=== PATIENT | male | born 1950 | race Hispanic/Latino ===

== ENCOUNTER 2016-12-16 10:13 | Emergency (ER) | payer OTHER, BC ==
[2016-12-16 10:30] VITALS: BP 107/66
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
== END 2016-12-16 13:08 | disposition home or self-care (01) ==
LOC: ED 10:13
DX: M25.512 Pain in left shoulder (principal); I10 Essential (primary) hypertension; K21.9 Gastro-esophageal reflux disease without esophagitis; Z88.8 Allergy status to other drugs, medicaments and biological substances; V49.49XA Driver injured in collision with other motor vehicles in traffic accident, initial encounter; Y93.89 Activity, other specified; Y92.89 Other specified places as the place of occurrence of the external cause; Y99.8 Other external cause status
CPT/HCPCS: 99282

== ENCOUNTER 2017-04-07 15:37 | Outpatient (CLI) | payer BC | END 2017-04-07 15:38 | disposition home or self-care (01) | LOC: CT 15:37 | PROVIDERS: ATTEND Surgery Vascular Surgery | DX: I71.4 Abdominal aortic aneurysm, without rupture (principal) | CPT/HCPCS: 36415; 82565; 84520 ==

== ENCOUNTER 2017-04-15 09:39 | Day surgery (SDC) | payer BC ==
[2017-04-15] MEDS ORDERED: NACL 0.9% 1000 ML 1,000 ML IV SCH (10:00)
[2017-04-15 10:28] VITALS: BP 138/83
--- NOTE | 2017-04-16 07:43 | Cat Scan Report ---
CT abdomen and pelvis with contrast: Abdominal aortic aneurysm endograft followup. During IV contrast administration transverse sections were obtained from the low chest to the ischium with coronal and sagittal 2-D and MIP images. Comparison is made to comparable exam in November 2014. Bilateral low attenuation renal masses are present consistent with simple cysts unchanged from prior exam. The unenhanced bowel demonstrates scattered colonic diverticula with no inflammatory changes. The bowel and mesentery is not otherwise remarkable. There is diffuse lumbar and lower thoracic spondylosis with severe narrowing of the L5-S1 interspace. The abdominal aortic aneurysm begins at the level of the left renal artery and extends to the bifurcation. Its maximum size is 7.95 x 7.82 centimeters. There is an aortobiiliac endograft attaching at the level of the left renal artery superiorly and both iliac arteries inferiorly. The endograft is patent. No evidence of leakage. The iliofemoral arteries are widely patent. These findings are unchanged prior exam. Impressions: Stable endograft and abdominal aortic aneurysm.
== END 2017-04-15 18:15 | disposition home or self-care (01) ==
LOC: CATHLABREC 09:39 → EDSTATUS 10:00 → CATHLABREC 18:15
PROVIDERS: ATTEND Surgery Vascular Surgery
DX: I71.4 Abdominal aortic aneurysm, without rupture (principal)
CPT/HCPCS: 36415; 74174; 82565; 84520; 96360; 96361; J7030; Q9967

== ENCOUNTER 2020-05-16 08:21 | Outpatient (CLI) | payer BC, MEDICARE | END 2020-05-16 08:22 | disposition home or self-care (01) | LOC: CT 08:21 | PROVIDERS: ATTEND Surgery Vascular Surgery | DX: I70.213 Atherosclerosis of native arteries of extremities with intermittent claudication, bilateral legs (principal) | CPT/HCPCS: 36415; 82565; 84520 ==

== ENCOUNTER 2020-05-21 07:06 | Day surgery (SDC) | payer MEDICARE ==
[2020-05-21] MEDS ORDERED: SODIUM CHLORIDE 0.9% 1000 ML 1,000 ML IV SCH (08:00)
[2020-05-21 08:16] LABS: Basophils % (Auto) 0.7 % (0.0-1.8); Eosinophils # (Auto) 0.2 K/mm3 (0.0-0.4); Eosinophils % (Auto) 2.4 % (0.0-4.3); Hemoglobin 14.2 gm/dl (11.8-15.2); Lymphocytes # (Auto) 1.9 K/mm3 (1.2-5.4); Lymphocytes % (Auto) 27.7 % (13.4-35.0); Mean Corpuscular HGB Conc 34 % (32-34); Mean Corpuscular Volume 93 fl (84-94); Monocytes # (Auto) 0.8 K/mm3 (0.0-0.8); Monocytes % (Auto) 11.4 % (0.0-7.3); Platelet Count 206 K/mm3 (140-440); Red Blood Count 4.51 M/mm3 (3.65-5.03); Red Cell Distribution Width 14.7 % (13.2-15.2)
[2020-05-21 08:26] LABS: INR 0.98 (0.87-1.13)
[2020-05-21 08:27] LABS: Partial Thromboplastin Time 36.7 Sec. (24.2-36.6)
[2020-05-21 08:28] LABS: Calcium 9.7 mg/dL (8.4-10.2)
[2020-05-21] MEDS ORDERED: HEPARIN/NS 5000 UNIT/500ML 500 ML IR ONE (08:40)
[2020-05-21] MEDS ORDERED: VERAPAMIL 5 MG/2 ML INJ ONE (08:41)
[2020-05-21] MEDS ORDERED: MIDAZOLAM 2 MG/2 ML INJ ONE (08:41)
[2020-05-21] MEDS ORDERED: fentaNYL 100 MCG/2 ML INJ ONE (08:41)
[2020-05-21] MEDS ORDERED: HEPARIN 10,000 UNITS/10 ML VIAL ONE (08:41)
[2020-05-21] MEDS ORDERED: NITROGLYCERIN SYRINGE 0 ML ONE (08:42)
[2020-05-21] MEDS ORDERED: LIDOCAINE (2%) 20 MG/1 ML VIAL 20 ML MDV INFILTRATI ONE ×2 (08:42→10:16)
--- NOTE | 2020-05-21 09:49 | Short Stay Summary ---
Short Stay Documentation Date of service: 05/21/20 Narrative H&P: 69-year-old male with AAA status post EVAR with enlarging aneurysmal sac and CKD. Plan for catheter directed CT angiogram to minimize amount of contrast in the setting of CKD. Hydration has been done beforehand. Risks of aneurysm increase in size versus risks of CKD noted and discussed with patient. With rehydration and limiting contrast amount, hopefully CKD will not worsen. - History Principal diagnosis: AAA H&P: obtained from office - Allergies and Medications Current Medications: Allergies rosuvastatin calcium [From Crestor] Allergy (Verified 07/11/14 13:56) Swelling Home Medications Medication Instructions Recorded Confirmed Last Taken Type Amlodipine Besylate 10 mg PO DAILY 07/11/14 04/15/17 04/14/17 History 10 mg Benazepril HCl 40 mg PO DAILY 07/11/14 04/15/17 04/14/17 History 40 mg Clonidine HCl 0.1 mg PO DAILY 07/11/14 04/15/17 04/14/17 History Metoprolol Xl [Metoprolol 100 mg PO QDAY 07/11/14 04/15/17 04/14/17 History SUCCINATE ER TAB] 100 mg Simvastatin 20 mg PO DAILY 07/11/14 04/15/17 04/14/17 History 20 mg Clopidogrel [Plavix] 75 mg PO QDAY #30 tablet 07/17/14 04/15/17 04/14/17 Rx 75 mg Active Medications Sodium Chloride (Nacl 0.9% 1000 Ml) 1,000 mls @ 240 mls/hr IV DIRECT DAPHNE Last Admin: 05/21/20 08:10 Dose: 240 mls/hr Documented by: - Physical exam General appearance: no acute distress Lungs: Normal air movement Gastrointestinal: normal Extremities: normal temperature, normal color - Brief post op/procedure progress note Date of procedure: 05/21/20 Pre-op diagnosis: Expanding AAA s/p EVAR Post-op diagnosis: same Procedure: 1. Ultrasound guided access of the left radial artery 2. Selection of the abdominal aorta with pigtail catheter Anesthesia: local Surgeon: ANNAMARIE CARPENTER Estimated blood loss: minimal Condition: stable - Hospital course Hospital course: Tolerated procedure well. Had pre-procedure and post procedure IV hydration. Total of 50 mL of nonionic contrast used for CT scan. - Disposition Condition at discharge: Good Disposition: DC-01 TO HOME OR SELFCARE - Discharge Diagnoses (1) AAA (abdominal aortic aneurysm) without rupture Status: Acute (2) Abdominal aortic aneurysm Status: Acute (3) S/P AAA (abdominal aortic aneurysm) repair Status: Acute (4) Hyperlipemia Status: Chronic (5) Hypertension Status: Chronic (6) Renal insufficiency Status: Chronic Short Stay Discharge Plan Activity: advance as tolerated Weight Bearing Status: Weight Bear as Tolerated (do not lift more than 10 lbs with left hand for 1 week) Diet: renal Wound: keep clean and dry Follow up with: ANNAMARIE CARPENTER MD [Staff Physician] - 7 Days HEIDI MANUEL MD [Primary Care Provider] - 7 Days Forms: Post Arteriogram Instruct
[2020-05-21] MEDS ORDERED: HEPARIN/NS 5000 UNIT/500ML 1,000 ML IR ONE (10:16)
[2020-05-21] MEDS: VERAPAMIL 5 MG/2 ML INJ ONE ×2 (11:02→11:12)
[2020-05-21] MEDS: fentaNYL 100 MCG/2 ML INJ ONE ×2 (11:02→11:08)
[2020-05-21] MEDS: MIDAZOLAM 2 MG/2 ML INJ ONE ×2 (11:02→11:08)
[2020-05-21] MEDS: HEPARIN 10,000 UNITS/10 ML VIAL ONE ×2 (11:03→11:12)
[2020-05-21] MEDS: NITROGLYCERIN SYRINGE 3 ML ONE ×2 (11:04→11:12)
--- NOTE | 2020-05-21 13:12 | Operative Report ---
Operative Report Operative Report: EXAM: 1. Ultrasound-guided access of the left radial artery. 2. Selection of the thoracic aorta, and suprarenal abdominal aorta. DATE: 05/21/2020 [employer] PROCESSING: ANNAMARIE CARPENTER MD INDICATION: EVAR with increase in aneurysmal sac size. Aneurysm is greater than 8 cm in size. Patient has underlying chronic kidney disease preventing full dose CT angiography. Plan will be to perform catheter directed CT angiography of the abdomen pelvis with post EVAR protocol to limit contrast dose. MEDICATIONS: Please see nursing report for full details. DEVICES: Pigtail catheter CONTRAST: 50 mL's of nonionic contrast injected during CT angiogram PROCEDURE: The risks, benefits, and alternatives were discussed with the patient; written informed consent was obtained. The patient was hydrated prior to procedure. The left wrist was prepped and draped in a sterile fashion. Ultrasound was used to evaluate the left radial artery which was patent. Under direct ultrasound guidance, the left radial artery was accessed with a 21-gauge micropuncture needle. 0.018 inch wire was passed into the radial artery. Needle was exchanged for a 4/5 glide sheath slender transitional sheath. Radial cocktail was administered. 0.035 inch J-wire was then passed into the thoracic aorta and a pigtail catheter was advanced over the wire and used to select the thoracic aorta. Wire and catheter were then used to select the suprarenal abdominal aorta. The sheath was sutured in place and the pigtail catheter was attached with a three-way stopcock and sterilely secured. Patient was then transferred to the CT scanner and dedicated CT angiogram using post EVAR protocol was performed. Afterwards, the pigtail catheter was removed over a 0.035 inch wire. The sheath was then removed and TR band was applied achieving hemostasis. FINDINGS: Please see procedure note above IMPRESSION: Successful selection of the abdominal aorta as described above.
[2020-05-21] MEDS ORDERED: SODIUM CHLORIDE 0.9% 500 ML 500 ML IV SCH (14:00)
--- NOTE | 2020-05-21 14:38 | Cat Scan Report ---
CTA ABDOMEN AND PELVIS WITHOUT AND WITH IV CONTRAST INDICATION / CLINICAL INFORMATION: Post EVAR. TECHNIQUE: Axial CT images were obtained through the abdomen and pelvis before and after after injection of 100 mL Omnipaque 350 IV contrast. 3 plane MIP / 3D reconstructions were produced. All CT scans at this [facility] are performed using CT dose reduction for ALARA by means of automated exposure control. COMPARISON: CT abdomen pelvis 04/15/2017 FINDINGS: Aorta: An intravascular catheter is present in the descending thoracic aorta, with tip terminating in the upper abdominal aorta. Abdominal aortic aneurysm status post placement of an aortobiiliac endova scular stent graft. There is no evidence for endoleak or complication. The excluded aneurysm sac appe ars mildly increased compared with prior study from 2018, currently measuring up to 9.5 x 8.6 cm, pre viously 8.6 x 7.6 cm. The maximum diameter of the opacified lumen within the stent measures up to 2.6 cm. Renal arteries: Originate just above the level of the aortic endograft. The right renal artery is unr emarkable. There is moderate stenosis of the origin of the left renal artery. Celiac artery: Originates above the level of the aortic endograft. No significant abnormality. Superior Mesenteric Artery: Originates just above the level of the aortic endograft. No significant a bnormality. Inferior mesenteric artery: Opacifies via collateral flow. Right Iliac Arteries: No significant abnormality.. Left Iliac Arteries: No significant abnormality.. Additional Findings: The liver, spleen, gallbladder, pancreas, and adrenal glands are unremarkable. T here are numerous bilateral renal cysts and atrophic change of the left kidney. The urinary bladder i s moderately distended. The prostate is borderline in size. The bowel is unremarkable. Bilateral ingu inal hernias with small bowel loops entering the proximal hernia sacs, without evidence of obstructio n. Skeletal Structures: Multilevel degenerative change of the spine. IMPRESSION: 1. Redemonstration of an aortoiliac endovascular stent graft. The excluded aneurysm sac is slightly i ncreased from prior study in 2018, currently measuring up to 9.5 cm, previously 8.6 cm. There is no e vidence for endoleak or complication. Signer Name: Thao Pa MD Signed: 05/21/2020 2:33 PM Workstation Name: [employer]
[2020-05-21 15:46] VITALS: BP 125/83
== END 2020-05-21 16:27 | disposition home or self-care (01) ==
LOC: CATHLABREC 07:06
PROVIDERS: ATTEND Radiology Diagnostic Radiology
DX: I70.213 Atherosclerosis of native arteries of extremities with intermittent claudication, bilateral legs (principal); I89.0 Lymphedema, not elsewhere classified; E78.5 Hyperlipidemia, unspecified; I10 Essential (primary) hypertension; I71.4 Abdominal aortic aneurysm, without rupture; K21.9 Gastro-esophageal reflux disease without esophagitis; Z79.899 Other long term (current) drug therapy; Z98.890 Other specified postprocedural states; Z82.49 Family history of ischemic heart disease and other diseases of the circulatory system
CPT/HCPCS: 36200; 36415; 75635; 80048; 85025; 85610; 85730; 99156; 99157; C1769; C1894; J1644; J2250; J3010; J7030; J7040; Q9967; 96360; 96361

== ENCOUNTER 2021-01-15 06:27 | Day surgery (SDC) | payer MEDICARE, BC ==
[2021-01-15] MEDS ORDERED: ASPIRIN EC 325 MG TAB PO NR (06:52)
[2021-01-15 07:27] LABS: Basophils % (Auto) 0.6 % (0.0-1.8); Eosinophils % (Auto) 2.1 % (0.0-4.3); Hematocrit 41.3 % (35.5-45.6); Hemoglobin 13.7 gm/dl (11.8-15.2); Lymphocytes % (Auto) 40.5 % (13.4-35.0); Mean Corpuscular HGB Conc 33 % (32-34); Monocytes % (Auto) 9.9 % (0.0-7.3); Red Blood Count 4.46 M/mm3 (3.65-5.03); Red Cell Distribution Width 14.2 % (13.2-15.2)
[2021-01-15 07:31] LABS: Lymphocytes # (Auto) 2.6 K/mm3 (1.2-5.4); Mean Corpuscular Volume 93 fl (84-94); Platelet Count 219 K/mm3 (140-440)
[2021-01-15 07:32] LABS: Eosinophils # (Auto) 0.1 K/mm3 (0.0-0.4); Monocytes # (Auto) 0.6 K/mm3 (0.0-0.8)
[2021-01-15 07:33] LABS: INR 0.89 (0.87-1.13)
[2021-01-15 07:34] LABS: Partial Thromboplastin Time 44.4 Sec. (24.2-36.6)
[2021-01-15 07:35] LABS: Calcium 9.2 mg/dL (8.4-10.2)
[2021-01-15] MEDS ORDERED: ASPIRIN EC 81 MG TAB PO NR (07:43)
[2021-01-15] MEDS ORDERED: ASPIRIN EC 81 MG TAB PO ONE (07:44)
[2021-01-15] MEDS: SODIUM CHLORIDE 0.9% 500 ML 500 ML IV SCH ×2 (07:53→09:09)
[2021-01-15] MEDS: MIDAZOLAM 2 MG/2 ML INJ ONE ×2 (09:06→09:28)
[2021-01-15] MEDS: fentaNYL 100 MCG/2 ML INJ ONE ×2 (09:07→09:28)
[2021-01-15] MEDS: VERAPAMIL 5 MG/2 ML INJ ONE ×2 (09:08→09:34)
[2021-01-15] MEDS: LIDOCAINE (2%) 20 MG/1 ML VIAL 20 ML MDV INFILTRATI ONE ×2 (09:08→09:30)
[2021-01-15] MEDS: HEPARIN 10,000 UNITS/10 ML VIAL ONE ×2 (09:09→09:34)
[2021-01-15] MEDS: HEPARIN/NS 5000 UNIT/500ML 1,000 ML IR ONE ×2 (09:09→09:35)
[2021-01-15] MEDS ORDERED: SODIUM CHLORIDE 0.9% 1000 ML 1,000 ML IV SCH (10:00)
--- NOTE | 2021-01-15 11:47 | Cardiac Catherization Report ---
DATE OF SERVICE: 01/15/2021 INDICATION: The patient is a 70-year-old white gentleman with history of hypertension, hyperlipidemia, with history of abdominal aortic aneurysm repair, was noted to have abnormal pharmacological stress testing with suggestion of a medium size defect in the anterior apical area, he is asymptomatic of any chest pain with his usual activities at this time. He was scheduled for cardiac catheterization. His creatinine was found to be 2.5 mg/dL. However, on review, the patient does have chronic kidney disease with creatinine of 2.4 last year. Discussed with the patient about possible kidney failure with angiogram. He understands. He is agreeable to proceed with the same. The patient was started on IV hydration with normal saline and taken to the catheterization laboratory for diagnostic angiography. DESCRIPTION OF PROCEDURE: The patient was brought to the catheterization laboratory and was evaluated for moderate sedation and was felt to be an appropriate candidate for moderate sedation. Received IV Versed and fentanyl and monitored throughout the procedure with a pulse oximetry, EKG monitoring and hemodynamic monitoring. The patient was prepared in standard fashion. Right wrist area was prepared and local anesthesia was given in the right wrist area. Right radial artery puncture was made using 21-gauge arterial puncture needle. A 5-Haitian slender sheath was used. A 5-Haitian multipurpose catheter was used to obtain the angiograms of the left coronary artery and a 6-Haitian JR4 catheter was used to obtain the angiograms of the right coronary artery. Left ventricle was entered and pressures were measured, but no left ventriculogram was performed. Total of 50 mL of dye was used, which Visipaque. The patient tolerated the procedure well. The patient was monitored throughout with as mentioned above the pulse oximetry and EKG monitoring. The patient's moderate sedation started at 9:28 a.m. and ended at 9:43 a.m. At the end of the procedure, the patient is communicating normally with no focal deficits and breathing normally. The patient was transferred to the outpatient area in stable condition. Hemostasis being achieved by application of radial band. Following findings were noted. HEMODYNAMICS: Opening aortic pressure 103/57. Left ventricular pressure 103/18. No left ventriculogram was performed. Right coronary artery, probably codominant vessel, is occluded in the proximal segment with reconstitution in the middle part through intra-arterial collaterals. This appears to be small caliber vessel supplying the proximal inferior septum. Also, on RCA injection, LAD is filling retrograde and also septal branches filling through the conus collateral. Left coronary artery arises normally from the left coronary cusp. Moderate calcifications noted. The ostial left main shows 40% smooth lesion. LAD is occluded in the proximal part with reconstitution in the mid part through the left coronary artery and right coronary artery. Circumflex artery codominant vessel, gives rise to a large obtuse marginal branch in the mid part. This shows a 60-70% tubular lesion with bypassable distal vessels. The posterolateral branch without significant disease. FINAL IMPRESSION: 1. Left ventriculogram was not performed because of his underlying kidney function. End-diastolic pressure is 18 mmHg. 2. 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 At this time, considering the above angiographic pictures, we would recommend revascularization probably with a surgical procedure. Plan at this time is to hydrate him and monitor his creatinine. We will make an appointment to see a CT surgeon for revascularization. The patient is on clopidogrel. For now, we will continue the same and may be discontinued once surgical evaluation was performed. I explained the findings to the patient. He understands. TID: [id number] RECEIPT: [id number] MARIELA/GENA/KATIE CUELLO
--- NOTE | 2021-01-15 13:39 | Electrocardiograph Report ---
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
[2021-01-15 15:35] VITALS: BP 135/77
== END 2021-01-15 16:16 | disposition home or self-care (01) ==
LOC: CATHLABREC 06:27
PROVIDERS: ATTEND Internal Medicine
DX: R94.39 Abnormal result of other cardiovascular function study (principal); I25.10 Atherosclerotic heart disease of native coronary artery without angina pectoris; I10 Essential (primary) hypertension; E78.5 Hyperlipidemia, unspecified; I34.0 Nonrheumatic mitral (valve) insufficiency; Z88.8 Allergy status to other drugs, medicaments and biological substances; Z79.899 Other long term (current) drug therapy; Z98.890 Other specified postprocedural states
CPT/HCPCS: 36415; 80048; 85025; 85610; 85730; 93005; 93458; 99156; C1894; J1644; J2250; J3010; J7030; J7040; Q9967

== ENCOUNTER 2021-10-23 12:49 | Inpatient (IN) | payer MEDICARE ==
[2021-10-23] MEDS ORDERED: SODIUM CHLORIDE 0.9% 1000 ML 1,000 ML IV ONE (15:05)
--- NOTE | 2021-10-23 15:54 | XRay Report ---
CHEST 1 VIEW INDICATION: hypotension. COMPARISON: None FINDINGS: SUPPORT DEVICES: None. HEART: Within normal limits. LUNGS/PLEURA: Slightly rotated exam with clear lungs. ADDITIONAL FINDINGS: None. IMPRESSION: 1. No acute findings. Signer Name: Anthony Modi MD Signed: 10/23/2021 3:50 PM Workstation Name: [id number]
[2021-10-23 15:55] LABS: Basophils % (Auto) 0.3 % (0.0-1.8); Hematocrit 35.1 % (35.5-45.6); Hemoglobin 11.6 gm/dl (11.8-15.2); Lymphocytes # (Auto) 1.5 K/mm3 (1.2-5.4); Lymphocytes % (Auto) 8.5 % (13.4-35.0); Mean Corpuscular HGB Conc 33 % (32-34); Mean Corpuscular Volume 93 fl (84-94); Monocytes # (Auto) 1.7 K/mm3 (0.0-0.8); Monocytes % (Auto) 9.5 % (0.0-7.3); Platelet Count 239 K/mm3 (140-440); Red Blood Count 3.77 M/mm3 (3.65-5.03); Red Cell Distribution Width 14.4 % (13.2-15.2)
[2021-10-23] MEDS ORDERED: CEFEPIME/NS 2 GM/100 ML 2 GM/100 ML BAG IV ONE (16:13)
[2021-10-23] MEDS ORDERED: VANCOMYCIN/NS 1 GM/250 ML 1 GM/250 ML BAG IV ONE (16:13)
[2021-10-23 16:15] LABS: Albumin 3.9 g/dL (3.9-5); Calcium 8.8 mg/dL (8.4-10.2)
--- NOTE | 2021-10-23 17:59 | Emergency Department Report ---
ED General Adult HPI - General Chief complaint: Back Pain/Injury Stated complaint: BACK PAIN/CHRONIC Time Seen by Provider: 10/23/21 14:58 Source: patient, EMS Mode of arrival: Stretcher Limitations: No Limitations - History of Present Illness Initial comments: Patient presents to the emergency department the chief complaint of more right back pain that started approximately 2 days ago. Patient denies any injury or strenuous activity. EMS states the patient's blood pressure was 70/50 upon their arrival. IV fluids were initiated. The patient still hypotensive on arrival. Patient denies having fever, cough or chills. -: Sudden Location: back Radiation: non-radiation Severity scale (0 -10): 7 Quality: aching Consistency: constant Improves with: none Worsens with: none Associated Symptoms: denies other symptoms Treatments Prior to Arrival: none - Related Data Home Medications Medication Instructions Recorded Confirmed Last Taken Benazepril HCl 40 mg PO DAILY 07/11/14 01/15/21 01/15/21 40 mg Simvastatin 20 mg PO QHS 07/11/14 01/15/21 01/14/21 20 mg Clopidogrel [Plavix] 75 mg PO QDAY 07/31/20 01/15/21 01/15/21 75 mg Hydralazine HCl 50 mg PO BID 07/31/20 01/15/21 01/14/21 50 mg labetaloL [Labetalol 200mg TAB] 200 mg PO BID 07/31/20 01/15/21 01/14/21 200 mg Aspirin EC [Halfprin EC] 81 mg PO DAILY 01/15/21 01/15/21 01/12/21 81 mg Benazepril HCl 40 mg PO DAILY 01/15/21 01/15/21 01/15/21 05:50 40 mg amLODIPine 10 mg PO DAILY 01/15/21 01/15/21 01/15/21 05:50 10 mg Allergies Allergy/AdvReac Type Severity Reaction Status Date / Time rosuvastatin calcium Allergy Swelling Verified 07/31/20 14:13 [From [facility]] ED Review of Systems ROS: Stated complaint: BACK PAIN/CHRONIC Other details as noted in HPI Constitutional: denies: chills, fever Eyes: denies: eye pain, eye discharge, vision change ENT: denies: ear pain, throat pain Respiratory: denies: cough, shortness of breath, wheezing Cardiovascular: denies: chest pain, palpitations Endocrine: no symptoms reported Gastrointestinal: denies: abdominal pain, nausea, diarrhea Genitourinary: denies: urgency, dysuria Musculoskeletal: back pain. 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) Hx Asthma: No Hx COPD: No Hx Dementia: No Hx HIV: No - Surgical History Additional Surgical History: aortic aneurysm - Social History Smoking Status: Never Smoker Substance Use Type: None - Medications Home Medications: Home Medications Medication Instructions Recorded Confirmed Last Taken Type Benazepril HCl 40 mg PO DAILY 07/11/14 01/15/21 01/15/21 History 40 mg Simvastatin 20 mg PO QHS 07/11/14 01/15/21 01/14/21 History 20 mg Clopidogrel [Plavix] 75 mg PO QDAY 07/31/20 01/15/21 01/15/21 History 75 mg Hydralazine HCl 50 mg PO BID 07/31/20 01/15/21 01/14/21 History 50 mg labetaloL [Labetalol 200mg TAB] 200 mg PO BID 07/31/20 01/15/21 01/14/21 History 200 mg Aspirin EC [Halfprin EC] 81 mg PO DAILY 01/15/21 01/15/21 01/12/21 History 81 mg Benazepril HCl 40 mg PO DAILY 01/15/21 01/15/21 01/15/21 05:50 History 40 mg amLODIPine 10 mg PO DAILY 01/15/21 01/15/21 01/15/21 05:50 History 10 mg ED Physical Exam - General Limitations: No Limitations General appearance: alert, in no apparent distress - Head Head exam: Present: atraumatic, normocephalic - Eye Eye exam: Present: normal appearance - ENT ENT exam: Present: mucous membranes dry - Neck Neck exam: Present: normal inspection - Respiratory Respiratory exam: Present: normal lung sounds bilaterally. Absent: respiratory distress - Cardiovascular Cardiovascular Exam: Present: regular rate, normal rhythm. Absent: systolic murmur, diastolic murmur, rubs, gallop - GI/Abdominal GI/Abdominal exam: Present: soft, normal bowel sounds. Absent: distended, tenderness - Rectal Rectal exam: Present: deferred - Extremities Exam Extremities exam: Present: normal inspection - Back Exam Back exam: Present: other (Tender to palpation at the insertion of the right external oblique muscle along the pelvis patient does not have CVA tenderness). Absent: CVA tenderness (L), paraspinal tenderness, vertebral tenderness - Neurological Exam Neurological exam: Present: alert, oriented X3, CN II-XII intact. Absent: motor sensory deficit - Psychiatric Psychiatric exam: Present: normal affect, normal mood - Skin Skin exam: Present: warm, dry, intact, normal color. Absent: rash ED Course Vital Signs 10/23/21 10/23/21 10/23/21 12:50 14:49 15:00 Temperature 97.8 F Pulse Rate 87 102 H 96 H Respiratory 18 20 20 Rate Blood Pressure 73/43 Blood Pressure 76/44 [Left] O2 Sat by Pulse 97 96 96 Oximetry 10/23/21 10/23/21 10/23/21 15:16 15:30 15:46 Temperature Pulse Rate 94 H 92 H 91 H Respiratory 26 H 32 H 17 Rate Blood Pressure 77/50 77/50 66/32 Blood Pressure [Left] O2 Sat by Pulse 96 99 99 Oximetry 10/23/21 10/23/21 10/23/21 16:00 16:15 16:31 Temperature Pulse Rate 90 101 H 101 H Respiratory 24 22 22 Rate Blood Pressure 85/54 76/54 Blood Pressure [Left] O2 Sat by Pulse 95 93 93 Oximetry 10/23/21 10/23/21 10/23/21 16:45 17:01 17:15 Temperature Pulse Rate 110 H 103 H 101 H Respiratory 25 H 19 15 Rate Blood Pressure 82/49 81/52 75/48 Blood Pressure [Left] O2 Sat by Pulse 96 94 93 Oximetry 10/23/21 10/23/21 10/23/21 17:31 17:45 18:01 Temperature Pulse Rate 100 H 104 H 110 H Respiratory 19 20 11 L Rate Blood Pressure 81/57 85/58 82/56 Blood Pressure [Left] O2 Sat by Pulse 93 95 98 Oximetry 10/23/21 10/23/21 10/23/21 18:15 18:31 18:59 Temperature Pulse Rate 122 H 122 H 116 H Respiratory 22 32 H 12 Rate Blood Pressure 85/53 78/48 77/53 Blood Pressure [Left] O2 Sat by Pulse 96 96 98 Oximetry 10/23/21 10/23/21 10/23/21 19:01 19:15 19:31 Temperature Pulse Rate 114 H 112 H 107 H Respiratory 21 21 11 L Rate Blood Pressure 77/53 76/49 84/51 Blood Pressure [Left] O2 Sat by Pulse 98 97 96 Oximetry 10/23/21 10/23/21 10/23/21 19:45 20:01 20:15 Temperature Pulse Rate 105 H 113 H 112 H Respiratory 16 16 21 Rate Blood Pressure 95/67 Blood Pressure [Left] O2 Sat by Pulse 96 98 98 Oximetry 10/23/21 10/23/21 10/23/21 20:31 20:45 21:01 Temperature Pulse Rate 98 H 102 H 107 H Respiratory 21 22 30 H Rate Blood Pressure 84/51 77/43 84/41 Blood Pressure [Left] O2 Sat by Pulse 97 96 96 Oximetry 10/23/21 10/23/21 10/23/21 21:11 21:21 21:31 Temperature Pulse Rate 98 H 96 H 107 H Respiratory 22 22 33 H Rate Blood Pressure 84/41 89/53 79/46 Blood Pressure [Left] O2 Sat by Pulse 93 98 91 Oximetry 10/23/21 10/23/21 10/23/21 21:41 21:51 22:01 Temperature Pulse Rate 96 H 103 H 89 Respiratory 19 18 19 Rate Blood Pressure 79/46 67/39 82/44 Blood Pressure [Left] O2 Sat by Pulse 93 94 96 Oximetry 10/23/21 10/23/21 10/23/21 22:11 22:21 22:31 Temperature Pulse Rate 98 H 101 H 101 H Respiratory 25 H 24 24 Rate Blood Pressure 82/44 88/52 87/47 Blood Pressure [Left] O2 Sat by Pulse 97 95 94 Oximetry 10/23/21 10/23/21 10/23/21 22:32 22:42 22:45 Temperature 99.0 F 98.4 F Pulse Rate 104 H 102 H 99 H Respiratory 18 16 21 Rate Blood Pressure 88/47 Blood Pressure 87/47 92/48 [Left] O2 Sat by Pulse 97 100 94 Oximetry ED Medical Decision Making - Lab Data Result diagrams: 10/23/21 15:24 10/23/21 15:24 Lab Results 10/23/21 10/23/21 10/23/21 Range/Units 15:24 15:24 15:24 WBC 17.9 H (4.5-11.0) K/mm3 RBC 3.77 (3.65-5.03) M/mm3 Hgb 11.6 L (11.8-15.2) gm/dl Hct 35.1 L (35.5-45.6) % MCV 93 (84-94) fl MCH 31 (28-32) pg MCHC 33 (32-34) % RDW 14.4 (13.2-15.2) % Plt Count 239 (140-440) K/mm3 Lymph % (Auto) 8.5 L (13.4-35.0) % [place] % (Auto) 9.5 H (0.0-7.3) % Eos % (Auto) 0.0 (0.0-4.3) % Baso % (Auto) 0.3 (0.0-1.8) % Lymph # (Auto) 1.5 (1.2-5.4) K/mm3 [place] # (Auto) 1.7 H (0.0-0.8) K/mm3 Eos # (Auto) 0.0 (0.0-0.4) K/mm3 Baso # (Auto) 0.0 (0.0-0.1) K/mm3 Seg Neutrophils % 81.7 H (40.0-70.0) % Seg Neutrophils # 14.6 H (1.8-7.7) K/mm3 Sodium 142 (137-145) mmol/L Potassium 4.9 (3.6-5.0) mmol/L Chloride 108.7 H (98-107) mmol/L Carbon Dioxide 21 L (22-30) mmol/L Anion Gap 17 mmol/L BUN 31 H (9-20) mg/dL Creatinine 4.1 H (0.8-1.3) mg/dL Estimated GFR 15 ml/min BUN/Creatinine Ratio 8 % Glucose 102 H (75-100) mg/dL Lactic Acid 3.80 H* (0.7-2.0) mmol/L Calcium 8.8 (8.4-10.2) mg/dL Total Bilirubin 0.80 (0.1-1.2) mg/dL AST 19 (5-40) units/L ALT 13 (7-56) units/L Alkaline Phosphatase 92 (35-129) units/L Troponin T 0.014 (0.00-0.029) ng/mL Total Protein 6.2 L (6.3-8.2) g/dL Albumin 3.9 (3.9-5) g/dL Albumin/Globulin Ratio 1.7 % - EKG Data -: EKG Interpreted by Me EKG shows normal: sinus rhythm Rate: tachycardia - Radiology Data Radiology results: report reviewed - Medical Decision Making Upon initial evaluation appeared that the patient was hypotensive from an infection. Patient did complain of not feeling well prior to coming to the ED. Patient's pain was located along the iliac crest at the insertion of the right external oblique muscle. Patient did not have any lilo flank pain. Patient received 2 L of IV fluids with his blood pressure increasing to 85/40 approximately. At this time IV Levophed was initiated. Patient tried multiple times to provide a urine to no avail. At this time a CT of the abdomen without IV contrast was ordered for evaluation of cystitis or perinephric stranding along with hydronephrosis. Upon CT completion I received a call from radiology with concern of the patient having a retroperitoneal bleed. At this time I reevaluated the patient he told me that he had a previous vascular graft for AAA. Although the patient's creatinine was 4.1 it was decided that the patient needed a CTA which was done with my consent. CTA showed a retroperitoneal hemo rrhage consistent with a AAA rupture from the endograft. Spoke to Dr. Romo who reviewed the patient's CT and agree that the patient had a large type III leak with retroperitoneal bleeding consistent with a ruptured AAA. At this time calls were placed to the [facility] who are all on diversion. Reached out to [facility] and spoke to Dr. Bal who accepted the patient Initial phone call to Dr. Romo when out at 8:08 PM Critical Care Time: Yes Critical care time in (mins) excluding proc time.: 120 Critical care attestation.: If time is entered above; I have spent that time in minutes in the direct care of this critically ill patient, excluding procedure time. ED Disposition Clinical Impression: AAA (abdominal aortic aneurysm, ruptured), Renal failure Disposition: 02 [facility]ORT [facility] Is pt being admited?: No Does the pt Need Aspirin: No Condition: Stable
[2021-10-23] MEDS ORDERED: LIDOCAINE (1%) 10 MG/1 ML VIAL 20 ML MDV INFILTRATI ONE (18:10)
[2021-10-23] MEDS ORDERED: NORepinephrine/NS 8 MG-250 ML 8 MG/250 ML INFUS..BTL IV SCH (19:00)
[2021-10-23] MEDS ORDERED: LIDOCAINE-MPF (1%) 10 MG/1 ML VIAL 5 ML INFILTRATI ONE (19:00)
--- NOTE | 2021-10-23 19:08 | History and Physical Report ---
History of Present Illness Chief complaint: My back hurts History of present illness: 71 YO Male with Vascular Dementia, Cerebral Atherosclerosis, PVD, AAA S/P EVAR, HTN, HLD, GERD presents to ED for evaluation. Pt reports "my back is hurting". Patient states that over the past 2 days he has experienced back pain. Patient states that his pain is 7/10, constant, not worsened with exertion, not relieved with rest. EMS was notified and upon arrival the patient was found to be in distress with a systolic blood pressure in the 70s and subsequently transported to [facility] for further care and evaluation of the aforementioned symptoms. The patient was seen and evaluated in the emergency department. All lab and imaging studies reviewed. Patient found to be hypotensive with a systolic blood pressure in the 70s, tachycardia with a heart rate in 120s and leukocytosis which is consistent with sepsis. Patient also found to have NADIA with ATN, volume depletion, and metabolic acidosis. Patient initiated on sepsis protocol admitted to ICU due to increased risk of worsening symptoms after medical stabilization. Patient denies fever, chills, chest pain, palpitation, trauma, productive cough, recent contact, known exposure to COVID-19. No prior admission for review. All medication listed at time of admission as reconciled. Advanced care planning conducted in ED. Past History Past Medical History: GERD, hypertension, hyperlipidemia, PVD Past Surgical History: abd. aortic aneurysm repair, Other (See HPI) Social history: . denies: smoking, alcohol abuse Family history: hypertension Medications and Allergies Allergies Allergy/AdvReac Type Severity Reaction Status Date / Time rosuvastatin calcium Allergy Swelling Verified 07/31/20 14:13 [From Crestor] Home Medications Medication Instructions Recorded Confirmed Last Taken Type Benazepril HCl 40 mg PO DAILY 07/11/14 01/15/21 01/15/21 History 40 mg Simvastatin 20 mg PO QHS 07/11/14 01/15/21 01/14/21 History 20 mg Clopidogrel [Plavix] 75 mg PO QDAY 07/31/20 01/15/21 01/15/21 History 75 mg Hydralazine HCl 50 mg PO BID 07/31/20 01/15/21 01/14/21 History 50 mg labetaloL [Labetalol 200mg TAB] 200 mg PO BID 05/26/21 11/10/21 11/09/21 History 200 mg Aspirin EC [Halfprin EC] 81 mg PO DAILY 01/15/21 01/15/21 01/12/21 History 81 mg Benazepril HCl 40 mg PO DAILY 01/15/21 01/15/21 01/15/21 05:50 History 40 mg amLODIPine 10 mg PO DAILY 01/15/21 01/15/21 01/15/21 05:50 History 10 mg Active Meds: Active Medications NORepinephrine/NS 8 MG-250 ML (Norepinephrine/Ns 8 Mg-250 Ml (Double Conc)) 8 mg in 250 mls @ 3.75 mls/hr IV TITRATE DAPHNE; Protocol Review of Systems Constitutional: no weight loss, no weight gain, no fever Ears, nose, mouth and throat: no ear pain, no ear discharge, no tinnitis, no nose pain, no nasal congestion Cardiovascular: no chest pain, no orthopnea, no rapid/irregular heart beat, no syncope Respiratory: no cough, no excessive sputum, no hemoptysis, no shortness of breath Gastrointestinal: no abdominal pain, no nausea, no diarrhea, no change in bowel habits Genitourinary Male: flank pain, no discharge, no urinary frequency Rectal: no pain, no incontinence Musculoskeletal: no neck pain, no arm numbness/tingling, no shooting leg pain, no leg numbness/tingling Integumentary: no rash, no redness, no wounds, no boils Neurological: no head injury Psychiatric: no anxiety, no change in sleep habits, no change in appetite, no suicidal ideation Endocrine: no cold intolerance, no excessive thirst, no polydipsia, no nocturia, no excessive sweating Hematologic/Lymphatic: no easy bruising Allergic/Immunologic: no urticaria, no wheezing Exam - Constitutional Vitals: Temp Pulse Resp BP Pulse Ox 97.8 F 101 H 15 75/48 93 10/23/21 12:50 10/23/21 17:15 10/23/21 17:15 10/23/21 17:15 10/23/21 17:15 General appearance: Present: mild distress - EENT Eyes: Present: PERRL ENT: hearing intact, clear oral mucosa - Neck Neck: Present: supple, normal ROM - Respiratory Respiratory effort: normal Respiratory: bilateral: CTA - Cardiovascular Heart Sounds: Present: S1 & S2. Absent: rub, click - Extremities Extremities: pulses symmetrical, No edema Peripheral Pulses: within normal limits - Abdominal General gastrointestinal: Present: soft, non-tender, non-distended, normal bowel sounds Male genitourinary: Present: normal - Integumentary Integumentary: Present: clear, warm, dry - Musculoskeletal Musculoskeletal: gait normal, strength equal bilaterally - Psychiatric Psychiatric: appropriate mood/affect, intact judgment & insight - Neurologic Neurologic: CNII-XII intact, moves all extremities HEART Score - HEART Score Troponin: Troponin T 0.014 ng/mL (0.00-0.029) 10/23/21 15:24 Results - Labs CBC & Chem 7: 10/23/21 15:24 10/23/21 15:24 Labs: Abnormal lab results 10/23/21 10/23/21 10/23/21 Range/Units 15:24 15:24 15:24 WBC 17.9 H (4.5-11.0) K/mm3 Hgb 11.6 L (11.8-15.2) gm/dl Hct 35.1 L (35.5-45.6) % Lymph % (Auto) 8.5 L (13.4-35.0) % [place] % (Auto) 9.5 H (0.0-7.3) % [place] # (Auto) 1.7 H (0.0-0.8) K/mm3 Seg Neutrophils % 81.7 H (40.0-70.0) % Seg Neutrophils # 14.6 H (1.8-7.7) K/mm3 Chloride 108.7 H (98-107) mmol/L Carbon Dioxide 21 L (22-30) mmol/L BUN 31 H (9-20) mg/dL Creatinine 4.1 H (0.8-1.3) mg/dL Glucose 102 H (75-100) mg/dL Lactic Acid 3.80 H* (0.7-2.0) mmol/L Total Protein 6.2 L (6.3-8.2) g/dL Assessment and Plan - Patient Problems (1) Sepsis Current Visit: Yes Status: Acute Plan to address problem: Sepsis protocol: Chest x-ray, CBC, urinalysis, IV for resuscitation therapy, IV pressor support to maintain mean arterial pressure greater than or equal 65, monitor fluid balance, blood culture. The high probability of a clinically significant, sudden or life threatening deterioration of the [cardiac, pulmonary, renal, infectious disease] system(s) required my full and direct attention, intervention and personal management. The aggregate critical care time was [95] minutes. This time is in addition to time spent performing reported procedures but includes the following: [x] Data Review and interpretation [x] Patient assessment and monitoring of vital signs [x 95] Documentation [x] Medication orders and management (2) Acute kidney injury (NADIA) with acute tubular necrosis (ATN) Current Visit: Yes Status: Acute Plan to address problem: IV for resuscitation therapy, BMP, repeat BMP in a.m. (3) Metabolic acidosis Current Visit: Yes Status: Acute Plan to address problem: IV for resuscitation therapy, serial lactic acid level, supportive care. (4) S/P AAA (abdominal aortic aneurysm) repair Current Visit: No Status: Acute Plan to address problem: Vascular surgery service consulted, CT angio. Patient pending further care and evaluation as per vascular surgery team. (5) DVT prophylaxis Current Visit: Yes Status: Acute Plan to address problem: SCD to bilateral lower extremities while in bed (6) Advance care planning Current Visit: Yes Status: Acute Plan to address problem: Disease education done, care plan discussed, diagnosis discussed, prognosis discussed, patient is full code. +30 minutes. (7) Preventative health care Current Visit: Yes Status: Acute Plan to address problem: Patient to follow-up with primary care physician for all age and risk factor appropriate screening test. +30 minutes.
--- NOTE | 2021-10-23 19:10 | Cat Scan Report ---
CT ABDOMEN AND PELVIS WITHOUT CONTRAST HISTORY: sepsis with right lower back pain COMPARISON: Previous CT on 05/21/2020 TECHNIQUE: Routine abdominal and pelvic CT exam performed without contrast. Lack of intravenous cont rast limits evaluation of the vascular and solid organs.. All CT scans at this location are performed using CT dose reduction for ALARA by means of automated exposure control. FINDINGS: CT ABDOMEN: Lung Bases: No significant abnormality. Liver: No significant abnormality. Biliary: No significant abnormality. Spleen: No significant abnormality. Unenlarged. Pancreas: No significant abnormality. Adrenals: No significant abnormality. Kidneys: Stable right renal cyst. Lymphatics: No lymphadenopathy. Vasculature: There is a large right retroperitoneal hematoma measuring 12.0 cm in greatest axial dime nsion and 16.3 cm in craniocaudal dimension. Additionally, the abdominal aorta which has previously g raft placement shows abnormal hyperattenuation in the excluded aneurysm which is new since the previo us study on 05/21/2020. Bowel/Peritoneum: No significant abnormality. No free air. No free fluid. CT PELVIC: : No significant abnormality. Lymphatics: No lymphadenopathy. Osseous Structures: No aggressive appearing osseous lesions. Additional Findings: None IMPRESSION: 1. Large right retroperitoneal hematoma. There is also an abnormal appearance of the previously stent grafted abdominal aorta. I am concerned that the hemorrhage is possibly actively coming from the aor ta. Emergent consultation with vascular surgery recommended. Findings called to Dr. Wharton at 6:03 PM on 10/23/2021. Signer Name: Peter Matthews MD Signed: 10/23/2021 7:06 PM Workstation Name: [id number]
--- NOTE | 2021-10-23 19:14 | Procedure Note ---
Date of procedure: 10/23/21 Pre-op diagnosis: Sepsis Post-op diagnosis: same Procedure: Right femoral vein triple-lumen catheter under ultrasound guidance After informed consent was obtained a timeout was taken with the patient's nurse at bedside to identify the correct patient, the correct procedure, and the correct operative site. Local anesthesia obtained with 1% lidocaine. The ultrasound was utilized to localize the right femoral vein without difficulty. The Seldinger technique was utilized to access the right femoral vein via a seeker needle under ultrasound guidance. A guidewire was then advanced via the seeker needle into the right femoral vein without difficulty and the seeker needle removed. A scalpel was used to incise the skin at the insertion site. A dilator was then passed over the guidewire into the right femoral vein and subsequently removed. A preflushed triple-lumen catheter was advanced via the guidewire into the right femoral vein and the guidewire subsequently removed. All 3 ports flush and drawl with ease. 3-0 silk suture was utilized to secure the triple-lumen catheter in place. A Biopatch was placed at the insertion site. A sterile dressing was utilized to cover the triple-lumen catheter. Estimated blood loss minimal. Complications none. Specimens none. Anesthesia: GETA Surgeon: GIUSEPPE CALDERON Estimated blood loss: none Pathology: none Condition: critical Disposition: ICU
--- NOTE | 2021-10-23 20:20 | Cat Scan Report ---
CTA ABDOMEN AND PELVIS WITH IV CONTRAST INDICATION / CLINICAL INFORMATION: Retroperitoneal bleed. TECHNIQUE: Axial CT images were obtained through the abdomen and pelvis before and after after injection of IV c ontrast. 3 plane MIP / 3D reconstructions were produced. All CT scans at this location are performed using CT dose reduction for ALARA by means of automated exposure control. Any percent stenosis measur ements are based on criteria similar to NASCET. COMPARISON: Prior CT done earlier today and CTA on 05/21/2020 FINDINGS: Aorta: Previous aortic stent graft placement. Aortic size is unchanged from prior exams, measuring up to 10.3 cm in axial dimension. Renal arteries: No significant abnormality. Celiac artery: No significant abnormality. Superior Mesenteric Artery: No significant abnormality. Inferior mesenteric artery: No significant abnormality. Right Iliac Arteries: Scattered atherosclerotic plaque without aneurysm or stenosis.. Left Iliac Arteries: Scattered atherosclerotic plaque without aneurysm or stenosis.. Additional Findings: A definite bleeding source is not identified. Unchanged large right retroperiton eal hematoma. In the hematoma, arterial phase density measurement is 46 Hounsfield units and venous p hase density measurement is 54 Hounsfield units. The IVC is collapsed suggesting significant volume depletion. Right femoral venous catheter is presen t with the tip in the right external iliac vein. Skeletal Structures: No significant abnormality. IMPRESSION: 1. Definite source of bleeding in the right retroperitoneum is not identified on this exam. However, there is increased density of the blood on the delayed/venous phase images suggesting some ongoing co ntrast extravasation although it may be venous in origin. 2. Right femoral venous catheter present with tip in the common iliac vein. Signer Name: Peter Matthews MD Signed: 10/23/2021 8:16 PM Workstation Name: [id number]
[2021-10-23] MEDS ORDERED: oxyCODONE /ACETAMINOPHEN 5-325MG TAB PO PRN (20:50)
[2021-10-23] MEDS ORDERED: ALBUTEROL 2.5 MG/3 ML NEBU IH PRN (20:50)
[2021-10-23] MEDS ORDERED: HYDROmorphone 0.5 MG/0.5 ML INJ IV PRN ×2 (20:50→20:51)
[2021-10-23] MEDS ORDERED: ACETAMINOPHEN 325 MG TAB PO PRN ×2 (20:50→20:51)
[2021-10-23] MEDS ORDERED: SODIUM CHLORIDE 0.9% 1000 ML IV SOLN IV ONE (20:51)
[2021-10-23] MEDS ORDERED: CEFEPIME/NS 2 GM/100 ML 2 GM/100 ML BAG IV SCH (21:00)
--- NOTE | 2021-10-23 21:22 | Event Note ---
Date: 10/23/21 Contacted about 71 year old male with PVD and AAA s/p EVAR who presented with retroperitoneal blood with hypotension. HGB 11, but baseline usually 13-16. CT performed without contrast and with contrast. Large amount of retroperitoneal hemorrhage noted with a right pararenal predominance. No extravasation noted, but thrombus noted in the AAA sac. Large amount of blood outside of the sac. This concerning for a delayed rupture of the AAA in the absense of endoleak. AAA sac quite large. Must be transferred to a tertiary care center as the solution is likely an open surgery. AAA rupture most likely diagnosis given abnormal density in AAA and the rest of the other issues. Recommend possible life flight.
[2021-10-23] MEDS ORDERED: SODIUM CHLORIDE 0.9% 500 ML 500 ML IV ONE (21:29)
[2021-10-23 23:51] VITALS: BP 95/56
--- NOTE | 2021-10-24 22:36 | Electrocardiograph Report ---
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
== END 2021-10-23 23:14 | disposition short-term general hospital (02) | DRG 314 ==
LOC: ED 12:49 → CC1 20:50
PROVIDERS: ADMIT Internal Medicine; ATTEND Internal Medicine
PROC: 06HY33Z Insertion of Infusion Device into Lower Vein, Percutaneous Approach (ICD-10-PCS; principal; 2021-10-23)
PROC: B54BZZA Ultrasonography of Right Lower Extremity Veins, Guidance (ICD-10-PCS; 2021-10-23)
PROC: 30233N1 Transfusion of Nonautologous Red Blood Cells into Peripheral Vein, Percutaneous Approach (ICD-10-PCS; 2021-10-23)
DX: T82.330A Leakage of aortic (bifurcation) graft (replacement), initial encounter (principal); A41.9 Sepsis, unspecified organism; N17.0 Acute kidney failure with tubular necrosis; I71.3 Abdominal aortic aneurysm, ruptured; T82.838A Hemorrhage due to vascular prosthetic devices, implants and grafts, initial encounter; I12.9 Hypertensive chronic kidney disease with stage 1 through stage 4 chronic kidney disease, or unspecified chronic kidney disease; N18.9 Chronic kidney disease, unspecified; K21.9 Gastro-esophageal reflux disease without esophagitis; F01.50 Vascular dementia, unspecified severity, without behavioral disturbance, psychotic disturbance, mood disturbance, and anxiety; I67.2 Cerebral atherosclerosis; I73.9 Peripheral vascular disease, unspecified; E78.5 Hyperlipidemia, unspecified; Z82.49 Family history of ischemic heart disease and other diseases of the circulatory system; Z79.82 Long term (current) use of aspirin; Y83.2 Surgical operation with anastomosis, bypass or graft as the cause of abnormal reaction of the patient, or of later complication, without mention of misadventure at the time of the procedure; Y92.89 Other specified places as the place of occurrence of the external cause
CPT/HCPCS: 36415; 71045; 74174; 74176; 80053; 82140; 84484; 85025; 86850; 86900; 86901; 86920; 87040; 93005; 99291; 99292; G0378; J2354; J3490; J0692; J3370; J7030; P9016; Q9967